=== PATIENT | female | born 1995 | race Caucasian/White ===

== ENCOUNTER → 2020-05-12 15:31 | Outpatient (CLI) | payer OTHER, SELFPAY ==
--- NOTE | ~2020-05-12 | US_ITS ---
US abdomen limited DATE: 05/12/2020 15:54 INDICATION: Elevated liver enzymes. Leukocytosis. TECHNIQUE: Real-time imaging and Doppler analysis COMPARISON: None FINDINGS: The technologist reports up to 5 hyperechoic hepatic lesions, the largest measuring up to a pproximately 2.1 cm dimension. These are most likely cavernous hemangiomas. Normal hepatopedal portal venous flow direction. No evidence of gallstones or gallbladder wall thickening or abnormal pericholecystic fluid collection . Negative sonographic Rodriguez's sign. The common bile duct measures 3.2 mm, normal. No pancreatic mass lesion. Normal caliber of the abdominal aorta. The inferior vena cava is patent. IMPRESSION: Multiple hepatic cavernous hemangiomas Reviewed, dictated and finalized at [facility]. Reviewed, dictated and finalized at [facility]. [facility]
== END ==
PROVIDERS: PCP Family Medicine; Visit Provider Physician Assistant
DX: R79.89 Other specified abnormal findings of blood chemistry (principal)
CPT/HCPCS: 76705